=== PATIENT | female | born 1950 | race Two or more races ===

== ENCOUNTER 2019-09-15 00:25 | Inpatient (IN) | payer MEDICARE, MEDICAID ==
[~2019-09-15] VITALS: Ht 162.6 cm; Wt 77.0 kg
[~2019-09-15 00:25] MED LIST: ASPI-1158 MT; ATOR20TA65 MT; BENA5TAB6 MT; CLON1TAB12 MT; EMPA25TA MT; EZET10TA26 MT; FLUV50TA3 MT; GABA-529 MT; GLIP2.5T3 MT; OMEP40CA12 PO; QUET50TA MT; SITA100T11 MT; TRAM50TA3 MT
[2019-09-15] MEDS ORDERED: ASPIRIN 81MG TABLET PO ONE (00:45)
[2019-09-15] MEDS ORDERED: NITROGLYCERIN 0.4MG TABLET SL SL PRN ×2 (00:45→06:15)
[2019-09-15 01:05] LABS: BASOPHILS % 0.4 % (0.0-2.0); EOSINOPHILS % 1.1 % (0.0-5.0); HEMATOCRIT. 34.1 % (36.0-48.0); HEMOGLOBIN. 11.8 g/dL (12.0-16.0); MEAN CORPUSCULAR HEMOGLOBIN 31.9 pg (28.0-32.0); MEAN CORPUSCULAR VOLUME 92.1 fL (81.0-99.0); MEAN PLATELET VOLUME 6.8 fl (7.4-10.4); NEUTROPHILS % 52.5 % (40.0-76.0); PLATELET 192 x1000/uL (130-400); RED CELL DISTRIBUTION WIDTH 14.2 % (11.6-14.6)
[2019-09-15 01:14] LABS: CHLORIDE 104 mEq/L (98-107)
[2019-09-15] MEDS ORDERED: IOHEXOL-350 100 ML BOTTLE ONE (03:43)
[2019-09-15] MEDS ORDERED: ACETAMINOPHEN 325MG TABLET PO PRN (06:15)
[2019-09-15] MEDS ORDERED: CLONIDINE 0.1MG TABLET PO PRN (06:15)
[2019-09-15] MEDS ORDERED: MORPHINE SULFATE 2 MG/ML CPJ (NOT FOR IM USE) IV PRN (06:15)
[2019-09-15] MEDS ORDERED: GUAIFENESIN 200MG/10ML SUGAR FREE UDC PO PRN (06:15)
[2019-09-15] MEDS ORDERED: MAGNESIUM/ALUMINUM HYDROXIDE/SIMETHICONE 30ML UDC PO PRN (06:15)
[2019-09-15] MEDS ORDERED: DOCUSATE SODIUM 100MG CAPSULE PO PRN (06:15)
[2019-09-15] MEDS ORDERED: HYDROCODONE/ACETAMINOPHEN 5/325MG TABLET PO PRN (06:15)
[2019-09-15] MEDS ORDERED: ONDANSETRON HCL 4MG/2ML INJ IV PRN (06:15)
[2019-09-15 07:41] VITALS: BP 131/67
[2019-09-15] MEDS ORDERED: ENOXAPARIN 40MG/0.4ML SYR SUBCUT SCH (09:00)
[2019-09-15] MEDS ORDERED: ASPIRIN 81MG EC TABLET PO SCH (09:00)
== END 2019-09-15 08:00 | disposition left against medical advice (07) | DRG 203 ==
LOC: ER 00:25 → MICUSO 04:43 → EDBEDREQTM 04:48 → EDBEDREQ 04:48
PROVIDERS: ADMIT Hospitalist; ATTEND Hospitalist
DX: R07.89 Other chest pain (principal); D64.9 Anemia, unspecified; E78.00 Pure hypercholesterolemia, unspecified; I10 Essential (primary) hypertension; E78.5 Hyperlipidemia, unspecified; Z88.6 Allergy status to analgesic agent; Z79.82 Long term (current) use of aspirin; Z79.899 Other long term (current) drug therapy
CPT/HCPCS: 36415; 71045; 71275; 74174; 80053; 83605; 83880; 84484; 85025; 93005; 99285; Q9967

== ENCOUNTER → 2021-06-30 | Outpatient (CLI) | payer MEDICARE, MEDICAID ==
[~2021-06-30] MED LIST changes: +ARIP1SOL PO; -ASPI-1158 MT; +ASPI-1406 MT; +BARIUM SULFATE 176 GM SUSP.RECON ONE; +BENA10TA74 MT; +DIATR MEGLU/DIATRIZOATE SOLN 120ML ONE; +ESCI5SOL2 PO; +EZ-HD SUSPENSION(BARIUM SULFATE 340GM) PO ONE; +OMEP20CA14 PO; -OMEP40CA12 PO; +OMEP40CA20 PO; +OXYB5TAB17 PO; +PIOG15TA68 MT; +SITA50TA3 PO; +TRAZ-251 MT
== END | disposition home or self-care (01) ==
LOC: RAD 10:27
PROVIDERS: ATTEND Internal Medicine Critical Care Medicine
DX: R13.10 Dysphagia, unspecified (principal); K21.9 Gastro-esophageal reflux disease without esophagitis
CPT/HCPCS: 74220; Q9963